=== PATIENT | female | born 1980 | race Caucasian/White ===

== ENCOUNTER 2020-04-14 11:09 | Emergency (ER) | payer SELFPAY ==
[~2020-04-14] VITALS: Ht 160 cm; Wt 75.0 kg
[2020-04-14 11:20] VITALS: BP 141/85; Ht 160 cm; Wt 75.0 kg
[2020-04-14] MEDS ORDERED: CORTISPORIN OIN15 GM TOPICAL (11:22)
[2020-04-14] MEDS ORDERED: CLARITIN 10 MG10 MG PO (11:22)
[2020-04-14] MEDS ORDERED: VISTARIL50 MG PO (11:40)
[2020-04-14] MEDS ORDERED: KEFLEX500 MG PO (11:40)
== END 2020-04-14 12:38 | disposition home or self-care (01) ==
LOC: D.ER 11:09
DX: L23.7 Allergic contact dermatitis due to plants, except food (principal); L03.90 Cellulitis, unspecified

== ENCOUNTER 2020-04-19 14:56 | Emergency (ER) | payer SELFPAY ==
[~2020-04-19] VITALS: Ht 160 cm; Wt 75.0 kg
[~2020-04-19 14:56] MED LIST: CLARITIN 10 MG10 MG PO; CORTISPORIN OIN15 GM TOPICAL; KEFLEX500 MG PO; VISTARIL50 MG PO
[2020-04-19 15:03] VITALS: Ht 160 cm; Wt 75.0 kg
[2020-04-19] MEDS ORDERED: PREDNISONE20 MG PO (16:05)
[2020-04-19] MEDS ORDERED: HYDROCODON-ACE1 EAC7 PO (16:17)
[2020-04-19 16:30] VITALS: BP 120/78
== END 2020-04-19 16:36 | disposition home or self-care (01) ==
LOC: D.ER 14:56
DX: L23.7 Allergic contact dermatitis due to plants, except food (principal); J45.909 Unspecified asthma, uncomplicated

== ENCOUNTER 2020-12-30 19:08 | Emergency (ER) | payer MEDICAID ==
[~2020-12-30] VITALS: Ht 160 cm; Wt 79.5 kg
[~2020-12-30 19:08] MED LIST changes: +HYDROCODON-ACE1 EAC7 PO; +PREDNISONE20 MG PO; +STERAPRED DS 1010 MG PO
[2020-12-30 19:13] VITALS: Ht 160 cm; Wt 79.5 kg
[2020-12-30] MEDS ORDERED: PROZAC40 MG PO (19:16)
[2020-12-30] MEDS ORDERED: AMBIEN10 MG PO (19:17)
[2020-12-30] MEDS ORDERED: CYCLOBENZAPRINE10 MG PO (19:17)
[2020-12-30] MEDS ORDERED: NEURONTIN 300300 MG PO (19:17)
[2020-12-30 19:57] LABS: BASOPHILS 0.5 % (0-2); EOSINOPHILS 1.4 % (0-7); HEMATOCRIT 43.1 % (36.0-48.0); HEMOGLOBIN 14.3 g/dL (12-16); IMMATURE GRANULOCYTES 0.2 % (0-5); LYMPHOCYTE ABS# 3.04 10x3/uL (1.18-3.74); LYMPHOCYTES 34.5 % (15-50); MCH 29.1 pg (26.0-34.0); MCHC 33.2 g/dL (31.0-37.0); MCV 87.8 fL (80.0-100.0); MEAN PLATELET VOLUME 12.1 fL (7.4-10.4); NEUTROPHIL ABS# 4.97 10x3/uL (1.56-6.13); NEUTROPHILS 56.4 % (40-80); PLATELET COUNT 259 10x3/uL (130-400); RBC 4.91 10x6/uL (4.00-5.40); RDW 12.7 % (11.5-14.5); WBC 8.8 10x3/uL (4.8-10.8)
--- NOTE | 2020-12-30 20:10 | NUR ---
DR SOLIMAN NOTIFIED AND REVIEWEDPT'S BEHAVIOR AND ASSESSMENT RESULTS. PTIS A LOW RISK PER DR SOLIMAN. DR SOLIMAN STATED TO GIVE RESOURCES TO PT AT TIME OF DISCHARGE. NO FURTHER ORDERS AT THIS TIME. REVIEWED WITH PT AND SHE VERBALIZES UNDERSTANDING. NO SI SINCE 2016 WHEN LOST DAUGHTER.
[2020-12-30 20:15] VITALS: BP 106/67
[2020-12-30 20:15] LABS: CALC OSMOLALITY 286 mosm/kg (275-300); CALCIUM 9.1 mg/dL (8.5-10.1); CARBON DIOXIDE 25.5 mmol/L (21.0-32.0); CHLORIDE - SERUM 107 mmol/L (98-107); CREATININE - SERUM 0.7 mg/dL (0.6-1.3); GLUCOSE 113 mg/dL (74-106); POTASSIUM - SERUM 3.7 mmol/L (3.5-5.1); SODIUM 143 mmol/L (136-145); UREA NITROGEN 14 mg/dL (7-18); eGFR NON AFRICAN AMERICAN > 90 mL/min (90-120)
[2020-12-30 20:18] LABS: ALBUMIN 3.4 g/dL (3.4-5.0); ALKALINE PHOSPHATASE 87 U/L (30-120); ALT (SGPT) 43 U/L (10-68); BILIRUBIN - TOTAL 0.22 mg/dL (0.2-1.3)
[2020-12-30 20:31] LABS: BILIRUBIN NEGATIVE (NEGATIVE); KETONE NEGATIVE (NEGATIVE); NITRITE NEGATIVE (NEGATIVE); UROBILINOGEN NORMAL mg/dL (< 2)
== END 2020-12-30 20:15 | disposition home or self-care (01) ==
LOC: D.ER 19:08
PROVIDERS: Emergency Medicine
DX: R42 Dizziness and giddiness (principal); M25.562 Pain in left knee; J45.909 Unspecified asthma, uncomplicated; M54.5 Low back pain

== ENCOUNTER 2021-02-03 21:17 | Emergency (ER) | payer MEDICAID ==
[~2021-02-03] VITALS: Ht 160 cm; Wt 79.4 kg
[~2021-02-03 21:17] MED LIST changes: +AMBIEN10 MG PO; +CYCLOBENZAPRINE10 MG PO; +NEURONTIN 300300 MG PO; +PROZAC40 MG PO
[2021-02-03 21:27] VITALS: Ht 160 cm; Wt 79.4 kg
[2021-02-03] MEDS ORDERED: HYDROCODON-ACE1 EA10 PO (21:30)
[2021-02-03 22:21] LABS: BILIRUBIN NEGATIVE (NEGATIVE); KETONE NEGATIVE mg/dL (< 1+); NITRITE NEGATIVE (NEGATIVE); PH 5.5 (5.0-8.0); SQUAMOUS EPITHELIAL 2 HPF (0-4); UROBILINOGEN 3 mg/dL (< 2); WHITE CELLS - URINE 2 HPF (0-4)
[2021-02-03 22:32] LABS: BASOPHILS 1.8 % (0-2); EOSINOPHILS 2.3 % (0-7); HEMATOCRIT 41.1 % (36.0-48.0); HEMOGLOBIN 13.7 g/dL (12-16); LYMPHOCYTES 32.5 % (15-50); MCH 28.2 pg (26.0-34.0); MCHC 33.3 g/dL (31.0-37.0); MCV 84.7 fL (80.0-100.0); MEAN PLATELET VOLUME 9.3 fL (7.4-10.4); MONOCYTES 6.8 % (2-11); NEUTROPHILS 56.6 % (40-80); PLATELET COUNT 226 10x3/uL (130-400); RBC 4.85 10x6/uL (4.00-5.40)
[2021-02-03 22:34] LABS: CALC OSMOLALITY 282 mosm/kg (275-300); CALCIUM 8.9 mg/dL (8.5-10.1); CARBON DIOXIDE 25.6 mmol/L (21.0-32.0); CHLORIDE - SERUM 107 mmol/L (98-107); CREATININE - SERUM 0.8 mg/dL (0.6-1.3); GLUCOSE 103 mg/dL (74-106); POTASSIUM - SERUM 3.9 mmol/L (3.5-5.1); SODIUM 141 mmol/L (136-145); UREA NITROGEN 19 mg/dL (7-18); eGFR NON AFRICAN AMERICAN 84 mL/min (90-120)
[2021-02-03 22:51] LABS: ALBUMIN 3.7 g/dL (3.4-5.0); ALKALINE PHOSPHATASE 108 U/L (30-120); ALT (SGPT) 51 U/L (10-68); BILIRUBIN - TOTAL 0.23 mg/dL (0.2-1.3); CKMB 0.2 U/L (0.0-3.6); CREATINE KINASE 39 UL (21-215); MAGNESIUM - SERUM 2.2 mg/dL (1.8-2.4); PROTEIN - SERUM 7.2 g/dL (6.4-8.2); TROPONIN-I < 0.017 ng/mL (0.000-0.060)
[2021-02-04 02:17] LABS: UDS - AMPHET NEGATIVE QUAL (NEGATIVE); UDS - BARB NEGATIVE QUAL (NEGATIVE); UDS - BENZO NEGATIVE QUAL (NEGATIVE); UDS - COCAINE NEGATIVE QUAL (NEGATIVE); UDS - OPIATE NEGATIVE QUAL (NEGATIVE); UDS - PCP NEGATIVE QUAL (NEGATIVE); UDS - THC POSITIVE QUAL (NEGATIVE)
[2021-02-04 02:27] LABS: LIPASE 136 U/L (73-393); PRO BNP 21 pg/mL (0-125)
[2021-02-04 06:00] VITALS: BP 117/80
== END 2021-02-04 06:00 | disposition home or self-care (01) ==
LOC: D.ER 21:17
PROVIDERS: Emergency Medicine
DX: R42 Dizziness and giddiness (principal); M54.9 Dorsalgia, unspecified; M47.9 Spondylosis, unspecified; M54.30 Sciatica, unspecified side; W19.XXXA Unspecified fall, initial encounter; J45.909 Unspecified asthma, uncomplicated